=== PATIENT | male | born 1960 | race Caucasian/White ===

== ENCOUNTER 2019-01-03 09:23 | Outpatient (CLI) | payer BC ==
--- NOTE | 2019-01-03 12:42 | CT ---
CT ABDOMEN WITH AND WITHOUT IV CONTRAST CT PELVIS WITH AND WITHOUT IV CONTRAST: DATE: 01/03/2019. HISTORY: Right upper quadrant abdominal pain and irregular bowel habits. Abdominal distention and heartburn. Dysuria. [place] 12/09/2007. FINDINGS: There is a nonobstructing calculus in the inferior pole right kidney measuring 4 mm as well as a 4 mm nonobstructing calculus in the inferior pole left kidney. A 2-3 mm nonobstructing calculus is seen in the superior pole left kidney with punctate nonobstructing calculus superior pole right kidney. N o ureteral calculus is seen, and there is no evidence of hydronephrosis. There are low-density struc tures seen within the hilum of each kidney which do not fill with contrast on delayed phase of imagin g and are most compatible with parapelvic renal cysts. No enhancing renal mass is present. Subcentimeter hypodense lesion is seen in the left hepatic lobe which is too small to further charact erize. This is not seen on the prior noncontrasted exam. The lung bases, spleen, pancreas, bilateral adrenal glands, and decompressed urinary bladder demonstr ate a normal CT appearance. There is colonic diverticulosis with innumerable colonic diverticula in the region of the sigmoid col on. Minimal vascular calcifications are seen at the origin of the renal arteries as well as at the origin of the ODELL. There are fat-containing bilateral inguinal canals. Degenerative changes are seen in the spine. IMPRESSION: 1. Nonobstructing bilateral renal calculi. 2. Bilateral parapelvic renal cysts. No enhancing renal mass is seen. 3. Subcentimeter too small to characterize hypodense lesion left hepatic lobe. 4. Colonic diverticulosis with innumerable colonic diverticula involving the sigmoid colon. 5. Bilateral fat-containing inguinal canals. POS: [facility]
== END 2019-01-03 09:24 | disposition home or self-care (01) ==
LOC: BICCT 09:23
PROVIDERS: ATTEND Physician Assistant Medical
DX: R10.11 Right upper quadrant pain (principal); R30.0 Dysuria; R19.4 Change in bowel habit; R14.0 Abdominal distension (gaseous); R12 Heartburn; N20.0 Calculus of kidney; N28.1 Cyst of kidney, acquired; K76.89 Other specified diseases of liver; K57.30 Diverticulosis of large intestine without perforation or abscess without bleeding
CPT/HCPCS: 74178